=== PATIENT | female | born 1950 | race Caucasian/White ===

== ENCOUNTER → 2016-10-10 | Outpatient (CLI) | payer MEDICARE ==
[~2016-10-10] MED LIST: CYAN100021 PO; FOLI0.4T2 PO; LEFLUNOMIDE; METH2.5T PO; PRED5TAB PO; RANI150C11 PO
--- NOTE | 2016-10-10 16:40 | Diagnostic Imaging Report ---
EXAMINATION: DEXA scan. INDICATION: Osteopenia. TECHNIQUE: Bone mineral density estimated based on dual energy radiography over the lumbar spine and femoral necks was performed. FINDINGS: The lumbar spine T-score is -2.6. This is a 3.8% increased density measurement compared to 10/27/2014. The T score over the left femoral neck is -1.8 and on the right is -2.1. This is a 0.7% increased density measurement compared to 10/27/2014. IMPRESSION: Osteoporosis. Dictated by: Dictated on workstation # [id number]
--- NOTE | 2016-10-10 19:20 | Diagnostic Imaging Report ---
Bilateral screening mammogram. The current study was also evaluated with a Computer Aided Detection (CAD) system. INDICATION: Screening. No current complaints stated on the questionnaire. COMPARISON: 10/27/2014. FINDINGS: The breasts are composed of heterogeneously dense parenchyma which may decrease mammographic sensitivity. Scattered benign-appearing calcifications are seen. Allowing for technique and positional differences, no suspicious change is seen. IMPRESSION: Dense breasts with no definite change. ACR BI-RADS Category 2: Benign findings. Result letter will be mailed to the patient. Note: At least 10% of breast cancer is not imaged by mammography. Dictated by: Dictated on workstation # [id number]
== END ==
LOC: RAD 10:10
PROVIDERS: ATTEND Family Medicine
DX: M81.0 Age-related osteoporosis without current pathological fracture (principal); Z12.31 Encounter for screening mammogram for malignant neoplasm of breast; Z85.3 Personal history of malignant neoplasm of breast
CPT/HCPCS: 77067; 77080

== ENCOUNTER → 2016-12-17 | Outpatient (CLI) | payer MEDICARE, OTHER ==
[2016-12-17 10:32] LABS: CREATININE SERUM 1.09 MG/DL (0.60-1.30)
--- NOTE | 2016-12-17 11:21 | Diagnostic Imaging Report ---
PROCEDURE: CT head with and without contrast. TECHNIQUE: Multiple contiguous axial images were obtained through the brain before and after the administration of intravenous contrast. INDICATION: Vertigo. 80 mL of Omnipaque 350 administered intravenously. FINDINGS: There is no intracranial hemorrhage, edema, or mass effect seen on the unenhanced phase. After contrast administration, no enhancing lesion is identified in the brain or extra-axial space. There is no hydrocephalus. The calvarium and orbits appear grossly unremarkable. There is mild opacification in the left mastoid sinus. IMPRESSION: 1. There is no intracranial hemorrhage or enhancing mass. 2. Partially opacified left mastoid air cells. Correlate for possible associated mastoiditis. Report was faxed to office of BRENT Ocampo, @ 11:14 AM/jason. Dictated by: Dictated on workstation # [id number]
--- NOTE | 2016-12-17 13:03 | Diagnostic Imaging Report ---
PROCEDURE: US Carotid Duplex Bilateral. TECHNIQUE: Multiple real-time grayscale images were obtained over the carotid arteries in various projections bilaterally. Additional duplex Doppler and color Doppler images were also obtained. INDICATION: TIA, vertigo and blurry vision. FINDINGS: There are no focally elevated velocities in either internal carotid artery. The ICA/CCA ratios are within normal limits, bilaterally. There is antegrade flow in the vertebral arteries, bilaterally. Grayscale images demonstrate minimal carotid plaque, bilaterally. IMPRESSION: Minimal bilateral carotid plaque however spectral analysis shows no evidence of a hemodynamically significant stenosis in either internal carotid artery. Dictated by: Dictated on workstation # [id number]
== END ==
LOC: RAD 09:42
PROVIDERS: ATTEND Nurse Practitioner Family
DX: R42 Dizziness and giddiness (principal); H53.8 Other visual disturbances; G45.9 Transient cerebral ischemic attack, unspecified
CPT/HCPCS: 36415; 70470; 82565; 84520; 93880

== ENCOUNTER → 2017-03-28 | Outpatient (CLI) | payer MEDICARE ==
[2017-03-28 09:18] LABS: BASOPHILS # (AUTO) 0.1 10^3/uL (0.0-0.1); BASOPHILS % (AUTO) 1 % (0-10); EOSINOPHILS # (AUTO) 0.1 10^3/uL (0.0-0.3); EOSINOPHILS % (AUTO) 1 % (0-10); LYMPHOCYTES # (AUTO) 4.2 X 10^3 (1.0-4.0); LYMPHOCYTES % (AUTO) 39 % (12-44); MEAN CORPUSCULAR HEMOGLOBIN 31 PG (25-34); MEAN CORPUSCULAR HGB CONC 33 G/DL (32-36); MEAN CORPUSCULAR VOLUME 94 FL (80-99); MEAN PLATELET VOLUME 9.8 FL (7.4-10.4); MONOCYTES # (AUTO) 0.7 X 10^3 (0.0-1.0); MONOCYTES % (AUTO) 6 % (0-12); NEUTROPHILS # (AUTO) 5.7 X 10^3 (1.8-7.8); NEUTROPHILS % (AUTO) 53 % (42-75); PLATELET COUNT 232 10^3/uL (130-400); RED BLOOD COUNT 4.51 10^6/uL (4.35-5.85); RED CELL DISTRIBUTION WIDTH 14.9 % (10.0-14.5); WHITE BLOOD COUNT 10.7 10^3/uL (4.3-11.0)
[2017-03-28 09:39] LABS: ALBUMIN 3.6 GM/DL (3.2-4.5); BILIRUBIN,TOTAL 0.6 MG/DL (0.1-1.0); CALCIUM 8.2 MG/DL (8.5-10.1); CREATININE SERUM 1.04 MG/DL (0.60-1.30); POTASSIUM 3.6 MMOL/L (3.6-5.0); TOTAL PROTEIN 6.3 GM/DL (6.4-8.2)
== END ==
LOC: LAB 09:05
PROVIDERS: ATTEND Family Medicine
DX: M06.9 Rheumatoid arthritis, unspecified (principal); E78.5 Hyperlipidemia, unspecified; Z79.899 Other long term (current) drug therapy
CPT/HCPCS: 36415; 80053; 80061; 85025

== ENCOUNTER → 2017-05-23 | Outpatient (CLI) | payer MEDICARE ==
[2017-05-23 09:14] LABS: BASOPHILS % (AUTO) 0 % (0-10); EOSINOPHILS # (AUTO) 0.1 10^3/uL (0.0-0.3); EOSINOPHILS % (AUTO) 1 % (0-10); LYMPHOCYTES % (AUTO) 20 % (12-44); MEAN CORPUSCULAR HEMOGLOBIN 31 PG (25-34); MEAN CORPUSCULAR HGB CONC 33 G/DL (32-36); MEAN CORPUSCULAR VOLUME 95 FL (80-99); MEAN PLATELET VOLUME 9.8 FL (7.4-10.4); MONOCYTES # (AUTO) 0.7 X 10^3 (0.0-1.0); MONOCYTES % (AUTO) 7 % (0-12); NEUTROPHILS # (AUTO) 7.3 X 10^3 (1.8-7.8); NEUTROPHILS % (AUTO) 72 % (42-75); PLATELET COUNT 213 10^3/uL (130-400); RED BLOOD COUNT 4.35 10^6/uL (4.35-5.85); RED CELL DISTRIBUTION WIDTH 15.2 % (10.0-14.5); WHITE BLOOD COUNT 10.1 10^3/uL (4.3-11.0)
[2017-05-23 09:38] LABS: ALANINE AMINOTRANSFERASE 19 U/L (0-55); ALBUMIN 3.5 GM/DL (3.2-4.5); ANION GAP 10 MMOL/L (5-14); ASPARTATE AMINO TRANSFERASE 15 U/L (5-34); BILIRUBIN,TOTAL 0.5 MG/DL (0.1-1.0); BLOOD UREA NITROGEN 18 MG/DL (7-18); BUN/CREATININE RATIO 22; CARBON DIOXIDE 19 MMOL/L (21-32); CHLORIDE 113 MMOL/L (98-107); CHOLESTEROL 234 MG/DL (< 200); CREATININE SERUM 0.83 MG/DL (0.60-1.30); DIRECT LDL 159 MG/DL (1-129); GFR ESTIMATED > 60; GLUCOSE 122 MG/DL (70-105); POTASSIUM 4.1 MMOL/L (3.6-5.0); SODIUM 142 MMOL/L (135-145); TOTAL PROTEIN 6.3 GM/DL (6.4-8.2); TRIGLYCERIDES 95 MG/DL (<150); VLDL CHOLESTEROL 19 MG/DL (5-40)
== END ==
LOC: LAB 08:55
PROVIDERS: ATTEND Family Medicine
DX: Z51.81 Encounter for therapeutic drug level monitoring (principal); E78.5 Hyperlipidemia, unspecified; Z79.899 Other long term (current) drug therapy
CPT/HCPCS: 36415; 80053; 80061; 85025

== ENCOUNTER → 2017-10-15 | Outpatient (CLI) | payer MEDICARE, OTHER ==
--- NOTE | 2017-10-15 13:40 | Diagnostic Imaging Report ---
Indication: Routine screening. Comparison is made with prior study 10/10/2016 and 10/27/2014. 2-D and 3-D bilateral screening mammography was performed with CAD. The current study was also evaluated with a Computer Aided Detection (CAD) system. Both breasts remain heterogeneously dense, limiting the sensitivity of mammography. There is a circumscribed density in the upper right breast posterior depth. This appears more prominent than prior exams. The left breast is unremarkable. No malignant appearing microcalcifications are seen. The axilla are unremarkable. Impression: BI-RADS zero Right breast density. Additional views and ultrasound are recommended for further evaluation. ACR BI-RADS Category 0: Incomplete. (Needs additional imaging evaluation). Result letter will be mailed to the patient. Note: At least 10% of breast cancer is not imaged by mammography. Dictated by: Dictated on workstation # [id number]
== END ==
LOC: RAD 07:59
PROVIDERS: ATTEND Family Medicine
DX: Z12.31 Encounter for screening mammogram for malignant neoplasm of breast (principal)
CPT/HCPCS: 77067

== ENCOUNTER → 2017-10-23 | Outpatient (CLI) | payer MEDICARE, OTHER ==
--- NOTE | 2017-10-23 12:17 | Diagnostic Imaging Report ---
INDICATION: Right breast density. Patient presents for additional views. COMPARISON: Correlation is made with the recent screening study from 10/15/2017. TECHNIQUE: 2D and 3D unilateral right diagnostic mammography was performed including 3D ML and 3D spot compression ML views of the right breast. The current study was also evaluated with a Computer Aided Detection (CAD) system. FINDINGS: There is a persistent circumscribed density in the superior right breast approximately 6 to 7 cm from the nipple. This appears to be slightly medially located. No suspicious calcifications are seen. IMPRESSION: Circumscribed density in the upper and slightly inner right breast 6 cm from the nipple. Further evaluation with ultrasound is recommended. ACR BI-RADS Category 0: Incomplete. (Needs additional imaging evaluation). Result letter will be mailed to the patient. Note: At least 10% of breast cancer is not imaged by mammography. Dictated by: Dictated on workstation # [id number]
--- NOTE | 2017-10-23 12:22 | Diagnostic Imaging Report ---
INDICATION: Abnormal mammogram demonstrating a right breast density. COMPARISON: Correlation is made with the diagnostic mammogram from earlier this same day. TECHNIQUE: Sonographic interrogation of the upper and slightly inner right breast was performed. FINDINGS: There is a slightly lobulated hypoechoic mass at the 1 o'clock location of the right breast 3 cm from the nipple measuring 11 mm x 8 mm x 11 mm. This does demonstrate posterior acoustic enhancement. No internal vascularity is seen. No shadowing is identified. Evaluating this Realtime, the lesion does appear to be cystic. No other masses are seen. IMPRESSION: Probable lobulated cyst at the 1 o'clock location of the right breast correlating to the density noted on the recent mammogram. A followup right mammogram and right breast ultrasound in 6 months would be recommended to show continued stability. ACR BI-RADS Category 3: Probably benign findings. Dictated by: Dictated on workstation # [id number]
== END ==
LOC: RAD 09:08
PROVIDERS: ATTEND Family Medicine
DX: N60.02 Solitary cyst of left breast (principal); R92.8 Other abnormal and inconclusive findings on diagnostic imaging of breast

== ENCOUNTER → 2018-04-29 | Outpatient (CLI) | payer MEDICARE, OTHER ==
--- NOTE | 2018-04-29 14:06 | Diagnostic Imaging Report ---
Indication: Six-month followup right breast nodule. Correlation is made with prior mammogram from 10/15/2017 and 10/10/2016. Unilateral right 2-D and 3-D diagnostic mammography was performed. The right breast remains heterogeneously dense. Circumscribed nodule in the upper and slightly inner right breast at mid-to posterior depth appears stable. No new mass is seen. No suspicious calcifications are seen. Impression: BI-RADS zero Stable circumscribed nodule in the upper slightly inner right breast. Followup with ultrasound will also be performed today. ACR BI-RADS Category 0: Incomplete. (Needs additional imaging evaluation). Result letter will be mailed to the patient. Note: At least 10% of breast cancer is not imaged by mammography. Dictated by: Dictated on workstation # [id number]
--- NOTE | 2018-04-29 14:34 | Diagnostic Imaging Report ---
Indication: Six-month followup right breast cyst. Correlation is made with prior right breast ultrasound from 10/23/2017. Sonographic interrogation of the 1 o'clock location of the right breast 3 cm from the nipple was performed. The previously noted slightly lobulated anechoic mass is again seen measuring 9 mm x 7 mm x 7 mm compared with approximately 11 mm x 8 mm x 11 mm on prior. Again, no internal vascularity is seen. No acoustic shadowing is present Impression: BI-RADS 3. Slight decrease in size of the lobulated cystic mass at the 1 o'clock location of the right breast since exam 6 month earlier. Additional followup mammogram and right breast ultrasound is recommended in 6 months to show continued stability. Dictated by: Dictated on workstation # [id number]
== END ==
LOC: RAD 12:28
PROVIDERS: ATTEND Family Medicine
DX: N60.01 Solitary cyst of right breast (principal); N63.12 Unspecified lump in the right breast, upper inner quadrant

== ENCOUNTER → 2018-04-30 | Outpatient (CLI) | payer MEDICARE ==
[2018-04-30 11:08] LABS: BASOPHILS % (AUTO) 1 % (0-10); EOSINOPHILS # (AUTO) 0.2 10^3/uL (0.0-0.3); EOSINOPHILS % (AUTO) 2 % (0-10); HEMATOCRIT 43 % (35-52); HEMOGLOBIN 13.9 G/DL (11.5-16.0); LYMPHOCYTES # (AUTO) 2.2 X 10^3 (1.0-4.0); LYMPHOCYTES % (AUTO) 25 % (12-44); MEAN CORPUSCULAR HEMOGLOBIN 30 PG (25-34); MEAN CORPUSCULAR HGB CONC 32 G/DL (32-36); MEAN CORPUSCULAR VOLUME 93 FL (80-99); MEAN PLATELET VOLUME 10.1 FL (7.4-10.4); MONOCYTES # (AUTO) 0.7 X 10^3 (0.0-1.0); MONOCYTES % (AUTO) 9 % (0-12); NEUTROPHILS # (AUTO) 5.6 X 10^3 (1.8-7.8); NEUTROPHILS % (AUTO) 64 % (42-75); PLATELET COUNT 233 10^3/uL (130-400); RED BLOOD COUNT 4.64 10^6/uL (4.35-5.85); RED CELL DISTRIBUTION WIDTH 14.8 % (10.0-14.5); WHITE BLOOD COUNT 8.8 10^3/uL (4.3-11.0)
[2018-04-30 11:35] LABS: ALANINE AMINOTRANSFERASE 20 U/L (0-55); ALBUMIN 3.7 GM/DL (3.2-4.5); ALKALINE PHOSPHATASE 51 U/L (40-136); BILIRUBIN,TOTAL 0.6 MG/DL (0.1-1.0); BUN/CREATININE RATIO 20; CALCIUM 8.8 MG/DL (8.5-10.1); CARBON DIOXIDE 20 MMOL/L (21-32); CHLORIDE 112 MMOL/L (98-107); CHOLESTEROL 211 MG/DL (< 200); CREATININE SERUM 0.91 MG/DL (0.60-1.30); GFR ESTIMATED > 60; GLUCOSE 98 MG/DL (70-105); HDL CHOLESTEROL 57 MG/DL (40-60); POTASSIUM 4.1 MMOL/L (3.6-5.0); SODIUM 143 MMOL/L (135-145); TOTAL PROTEIN 6.5 GM/DL (6.4-8.2); TRIGLYCERIDES 121 MG/DL (<150); VLDL CHOLESTEROL 24 MG/DL (5-40)
== END ==
LOC: RAD 10:43
PROVIDERS: ATTEND Family Medicine
DX: Z51.81 Encounter for therapeutic drug level monitoring (principal)
CPT/HCPCS: 36415; 80053; 80061; 85025

== ENCOUNTER → 2018-06-24 | Outpatient (CLI) | payer MEDICARE, OTHER ==
--- NOTE | 2018-06-24 12:36 | Diagnostic Imaging Report ---
PROCEDURE: US left lower extremity venous. TECHNIQUE: Multiple real-time grayscale images were obtained over the left lower extremity in various projections. Additional duplex Doppler and color Doppler images were also obtained. Date: June 24, 2018. Indication: 68-year-old female, left leg swelling and calf pain. Evaluation for deep venous thrombosis. Comparison: January 16, 2016. Findings: The left common femoral vein, left superficial femoral vein, and left popliteal vein are all compressible with normal flow and response to augmentation. The visualized portions of the left deep femoral vein are patent. The left posterior tibial vein and peroneal vein but appear patent. IMPRESSION: 1. Negative for left lower extremity deep venous thrombosis. Dictated by: Dictated on workstation # [id number]
== END ==
LOC: RAD 11:57
PROVIDERS: ATTEND Family Medicine
DX: M79.89 Other specified soft tissue disorders (principal)

== ENCOUNTER → 2018-10-08 | Outpatient (CLI) | payer MEDICARE, OTHER ==
--- NOTE | 2018-10-08 21:09 | Diagnostic Imaging Report ---
INDICATION: Six-month followup right breast nodule. Correlation is made with prior mammogram from 04/29/2018, 10/23/2017. 2-D and 3-D bilateral diagnostic mammography was performed with a Computer Aided Detection (CAD) system. FINDINGS: Both breasts remain heterogeneously dense, limiting sensitivity of mammography. Circumscribed nodule upper and slightly inner right breast at mid-to posterior depth appears stable. No new mass is seen. No suspicious calcifications are identified. Axillae are unremarkable. IMPRESSION: Stable bilateral mammograms. Ultrasound of the upper-inner right breast is recommended to further evaluate previously noted cystic nodule at the 1 o'clock location. This will be performed today. ACR BI-RADS Category 0: Incomplete. (Needs additional imaging evaluation). Result letter will be mailed to the patient. Note: At least 10% of breast cancer is not imaged by mammography. Dictated by: Dictated on workstation # [id number]
--- NOTE | 2018-10-08 21:26 | Diagnostic Imaging Report ---
INDICATION: Six-month followup right breast cyst. Correlation is made with prior mammogram from 04/29/2018. FINDINGS: Hypoechoic mass 1 o'clock location 3 cm from the nipple is again noted measuring 9 mm x 6 mm x 7 mm compared with 10 mm x 7 mm x 7 mm on prior. No internal vascularity is seen. No other masses are detected IMPRESSION: Stable cystic nodule right breast 1 o'clock location 3 cm from the nipple when compared with exam from 6 months earlier. Additional six-month followup is recommended to confirm stability. ACR BI-RADS Category 3: Probably benign findings. Dictated by: Dictated on workstation # [id number]
== END ==
LOC: RAD 13:43
PROVIDERS: ATTEND Family Medicine
DX: N60.01 Solitary cyst of right breast (principal)
CPT/HCPCS: 77066

== ENCOUNTER → 2018-10-27 | Outpatient (CLI) | payer MEDICARE, OTHER ==
--- NOTE | 2018-10-27 10:41 | Diagnostic Imaging Report ---
INDICATION: Osteoporosis, postmenopausal state. COMPARISON: October 10, 2016 FINDINGS: AP Spine L1-L4: [BMD (g/cm2): 0.907] [T-Score: -2.4] [Z-Score: -1.3] [BMD Previous: 0.892] [BMD % Change: 1.7] LT Hip Neck: [BMD (g/cm2): 0.725] [T-Score: -2.3] [Z-Score: -1.0] LT Hip Total: [BMD (g/cm2):0.792] [T-Score:-1.7] [Z-Score: -0.7] [BMD Previous: 0.787] [BMD % Change: 0.6] RT Hip Neck: [BMD (g/cm2):0.742] [T-Score:-2.1] [Z-Score:-0.8] RT Hip Total: [BMD (g/cm2):0.799] [T-score:-1.7] [Z-Score:-0.6] [BMD Previous:0.743] [BMD % Change:7.5] *Indicates significant change from prior examination based on 95% confidence level. World Health Organization criteria for BMD interpretation classify patients as Normal (T-score at or above -1.0), Osteopenic (T-score between -1.0 and -2.5) or Osteoporotic (T-score at or below -2.5). LIMITATIONS AND MODIFICATION: None. FRACTURE RISK (FRAX SCORE): The ten year probability of (%): Major Osteoporotic Fracture: [15.8] Hip Fracture: [3.5] IMPRESSION: 1. Osteopenia (Low bone mass). 2. No significant change in bone mineral density since prior examination. 3. See below National Osteoporosis Foundation guidelines on when to potentially initiate pharmacologic therapy. Based on the National Osteoporosis Foundation Guidelines, pharmacologic treatment should be initiated in any of the following, unless clinical conditions suggest otherwise: * Any patient with prior fragility fracture of the hip or vertebrae. A spine fracture indicates 5X risk for subsequent spine fracture and 2X risk for subsequent hip fracture. * Osteoporosis (T-score <-2.5). * Postmenopausal women and men age 50 and older with low bone mass/osteopenia (T-score between -1.0 and -2.5) by DXA and 10-year major osteoporotic fracture greater than 20% or a 10-year probability of hip fracture greater than 3%. These fracture risks are supplied above in the FRAX score, if applicable. * Clinician judgement and/or patient preferences may indicate treatment for people with 10-year fracture probabilities above or below these levels. Dictated by: Dictated on workstation # [id number]
== END ==
LOC: RAD 09:43
PROVIDERS: ATTEND Family Medicine
DX: M81.0 Age-related osteoporosis without current pathological fracture (principal); M85.89 Other specified disorders of bone density and structure, multiple sites; Z78.0 Asymptomatic menopausal state; R92.8 Other abnormal and inconclusive findings on diagnostic imaging of breast
CPT/HCPCS: 77080

== ENCOUNTER → 2019-04-09 | Outpatient (CLI) | payer MEDICARE, OTHER ==
--- NOTE | 2019-04-09 18:08 | Diagnostic Imaging Report ---
EXAMINATION: Ultrasound right breast limited. INDICATION: Cystic mass. FINDINGS: The previous right breast ultrasound exam of 10/23/2017 noted a lobulated cyst in the 11 o'clock position of the right breast. That finding measured minimally smaller on the follow-up ultrasound exam of 04/29/2018. On this study, the lobulated avascular hypoechoic lesion seen previously is again evident and does not appear to have changed significantly. Although the margins of this lesion are somewhat irregular, the stable appearance of this finding over an 18-month period would suggest it is most likely a benign process. I would recommend that this area be reevaluated by ultrasound in six months to establish a two-year stability. IMPRESSION: The hypoechoic lesion in the right breast seen previously appears stable. Most likely, this is a benign process. Recommendations as above. ACR BI-RADS Category 3: Probably benign findings. Result letter will be mailed to the patient. Note: At least 10% of breast cancer is not imaged by mammography. Dictated by: Dictated on workstation # [id number]
== END ==
LOC: RAD 08:44
PROVIDERS: ATTEND Family Medicine
DX: N64.89 Other specified disorders of breast (principal); N63.10 Unspecified lump in the right breast, unspecified quadrant

== ENCOUNTER 2020-09-21 05:36 | Outpatient (CLI) | payer MEDICARE, OTHER ==
[~2020-09-21] VITALS: Ht 154.9 cm; Wt 76.8 kg
[2020-09-21] MEDS ORDERED: FOLI0.4T6 PO (10:40)
[2020-09-21] MEDS ORDERED: METH2.5T PO (10:40)
[2020-09-21] MEDS ORDERED: PRAV80TA2 PO (10:40)
== END 2020-09-21 10:44 | disposition home or self-care (01) ==
LOC: PREOP 05:36
PROVIDERS: ATTEND Surgery
DX: Z01.818 Encounter for other preprocedural examination (principal)

== ENCOUNTER 2020-09-27 06:04 | Day surgery (SDC) | payer MEDICARE, OTHER ==
[~2020-09-27] VITALS: Ht 154 cm; Wt 76.8 kg
[~2020-09-27 06:04] MED LIST changes: +FOLI0.4T6 PO; +PRAV80TA2 PO
[2020-09-27] MEDS ORDERED: LACTATED RINGERS 1,000 ML IV PRN (06:45)
[2020-09-27] MEDS ORDERED: ceFAZolin 2 GM IV Premixed 50 ML IV ONE (06:45)
[2020-09-27 06:48] VITALS: BP 142/92
[2020-09-27] MEDS ORDERED: LIDOCAINE 1% INJ 20 ML 20 ML VIAL INJ ONE (08:30)
[2020-09-27] MEDS ORDERED: LIDOCAINE 1% INJ 20 ML 20 ML VIAL ONE (08:46)
--- NOTE | 2020-09-27 11:03 | Diagnostic Imaging Report ---
INDICATION: Right breast mass. Patient presents for ultrasound-guided biopsy. DETAILS OF THE PROCEDURE: The patient was brought to the sonographic suite and placed on the table in the supine position. Ultrasound imaging of the right breast was performed to evaluate for an appropriate entry site. The lobulated cystic lesion at the 11 o'clock location of the right breast 3 cm from the nipple was biopsied using a 13-gauge hand-held vacuum-assisted mammotome device. After the initial pass, the lesion completely collapsed, likely owing to a fluid-containing lesion. Additional core biopsies at the site of the lesion were also performed. A marker clip was then deployed. Hemostasis was obtained using manual compression. The patient tolerated the procedure well and was sent for a post procedure mammogram in satisfactory condition. IMPRESSION: Successful ultrasound guided biopsy of the lobulated cystic lesion at the 11 o'clock location of the right breast 3 cm from the nipple. Pathology results are currently pending. If this lesion is benign, the patient will proceed with hookwire localization of the known neoplastic nodule at the 6 o'clock location of the right breast. If the 11 o'clock lesion is malignant, additional surgical planning by Dr. Angel will be performed. Dictated by: Dictated on workstation # [id number]
[2020-09-27 11:45] VITALS: BP 138/86
--- NOTE | 2020-09-27 13:20 | Diagnostic Imaging Report ---
INDICATION: Right breast biopsy. 2-D CC and ML mammography was performed. There is a marker clip identified in the upper right breast, status post right breast biopsy. There is a marker clip noted in the lower outer right breast as well from prior biopsy. IMPRESSION: Satisfactory location of the marker clip in the superior right breast, status post ultrasound-guided biopsy. Dictated by: Dictated on workstation # [id number]
== END 2020-09-27 11:45 ==
LOC: SDC 06:04 → EDSTATUS 11:45
PROVIDERS: ATTEND Surgery
DX: C50.311 Malignant neoplasm of lower-inner quadrant of right female breast (principal); N60.31 Fibrosclerosis of right breast; M19.90 Unspecified osteoarthritis, unspecified site; E66.9 Obesity, unspecified; Z68.32 Body mass index [BMI] 32.0-32.9, adult; Z79.899 Other long term (current) drug therapy; Z88.2 Allergy status to sulfonamides
CPT/HCPCS: 19083; 77065; 87081; 88305; A4648; G0279

== ENCOUNTER 2020-10-12 05:35 | Outpatient (CLI) | payer MEDICARE ==
[~2020-10-12] VITALS: Ht 154.9 cm; Wt 78.0 kg
[2020-10-12] MEDS ORDERED: MULT-1136 PO (12:33)
== END 2020-10-12 12:49 | disposition home or self-care (01) ==
LOC: PREOP 05:35
PROVIDERS: ATTEND Surgery
DX: Z01.818 Encounter for other preprocedural examination (principal); C50.911 Malignant neoplasm of unspecified site of right female breast

== ENCOUNTER 2020-10-18 06:07 | Day surgery (SDC) | payer MEDICARE, OTHER ==
[2020-10-18] VITALS (11 sets, daily range): BP systolic 110–154; BP diastolic 65–98
[~2020-10-18] VITALS: Ht 154 cm; Wt 78.0 kg
[~2020-10-18 06:07] MED LIST changes: +MULT-1136 PO
[2020-10-18] MEDS ORDERED: LACTATED RINGERS 1,000 ML IV PRN (06:15)
[2020-10-18] MEDS ORDERED: ceFAZolin 2 GM IV Premixed 50 ML IV ONE (06:15)
[2020-10-18] MEDS ORDERED: ceFAZolin 2 GM IV Premixed 50 ML ONE (06:36)
--- NOTE | 2020-10-18 08:17 | Progress Note-Pre Operative ---
Pre-Operative Progress Note H&P Reviewed The H&P was reviewed, patient examined and no changes noted. Time Seen by Provider: 08:12 Date H&P Reviewed: October 18, 2020 Time H&P Reviewed: 08:13 Pre-Operative Diagnosis: Right breast Cancer PORSCHE GARCIA DO October 18, 2020 08:17
[2020-10-18] MEDS ORDERED: LIDOCAINE 1% INJ 20 ML 20 ML VIAL INJ ONE (08:30)
[2020-10-18] MEDS ORDERED: METHYLENE BLUE 0.5% (PROVAYBLUE) 50 mg/10 ml vial IV ONE (08:41)
[2020-10-18] MEDS ORDERED: LIDOCAINE/EPI 1%-1:100,000 (XYLOCAINE) 20ML ONE (08:41)
--- NOTE | 2020-10-18 09:32 | Diagnostic Imaging Report ---
INDICATION: Breast cancer Lymphoscintigram 1.1 mCi of technetium 99m filtered sulfur colloid was injected into the 4 quadrant periareolar regions of the right breast. There are 2 right axillary lymph nodes seen one with greater uptake is more anterior. IMPRESSION: Axillary sentinel node localization. Dictated by: Dictated on workstation # [id number]
[2020-10-18] MEDS ORDERED: fentaNYL INJ 100 MCG/2 ML AMP ONE ×2 (10:31→11:34)
[2020-10-18] MEDS ORDERED: MIDAZOLAM 2 MG/2 ML (VERSED) VIAL ONE (10:31)
[2020-10-18] MEDS ORDERED: LIDOCAINE PF 2% 5 ML (XYLOCAINE) VIAL ONE (10:31)
[2020-10-18] MEDS ORDERED: proPOfol 200 MG/20 ML (DIPRIVAN) VIAL IV ONE (10:31)
[2020-10-18] MEDS ORDERED: ONDANSETRON 4 MG/2 ML (SDV) Z0FRAN ONE (10:31)
[2020-10-18] MEDS ORDERED: SEVOFLURANE (ULTANE) 15 ML INHAL SOLN ONE ×2 (10:31→11:49)
--- NOTE | 2020-10-18 11:00 | Diagnostic Imaging Report ---
INDICATION: Right breast nodule. Patient presents for hook wire placement prior to lumpectomy. DETAILS OF THE PROCEDURE: The patient was brought to the sonographic suite and placed on the table in the supine position. Ultrasound imaging of the right breast was performed to evaluate for an appropriate entry site. The right breast was then prepped and draped in the usual sterile fashion. A small amount of 1% lidocaine was utilized for local anesthesia. A localizer needle was advanced through the hypoechoic nodule at the 6 o'clock location of the right breast. A hookwire was deployed and the needle was removed. The hookwire was affixed to the patient's skin. The patient tolerated the procedure well and was sent for a post procedure mammogram in satisfactory condition. IMPRESSION: Successful sonographically assisted hookwire placement through the lesion at the 6 o'clock location of the right breast. Dictated by: Dictated on workstation # [id number]
--- NOTE | 2020-10-18 11:52 | Progress Note-Post Operative ---
Post-Operative Progess Note Surgeon (s)/Financial Sales Professional (s) Surgeon PORSCHE GARCIA DO Financial Sales Professional: Blanca Pre-Operative Diagnosis Right breast Cancer Post-Operative Diagnosis same pending path Procedure & Operative Findings Date of Procedure 10/18/20 Procedure Performed/Findings 1. Right partial Mastectomy with needle localization 2. [place] lymph node bx 3. injection of methylene blue Anesthesia Type LMA Estimated Blood Loss Estimated blood loss (mL): appx 20ml Specimens/Packing Specimens Removed right partial mastectomy sentinel lymph node PORSCHE GARCIA DO October 18, 2020 11:52
[2020-10-18] MEDS ORDERED: ACHD5005 PO (11:53)
--- NOTE | 2020-10-18 11:54 | Discharge Inst-Surgical ---
Discharge Inst-Surgical Depart Medication/Instructions New, Converted or Re-Newed RX: RX Given to Pt/Family Patient Instructions Follow up Appt: Make appointment for 1 week. [phone] Instructions: No lifting greater than 20 pounds. No strenuous activity. May shower in 24 hours, no tub bath or soaking. Use incentive spirometer at home as directed. No Smoking Skin/Wound Care: May remove bandages in am. You need to leave the Dermabond on incision it will fall off on it's own. Symptoms to Report: Appetite Changes, Extremity Discoloration, Numbness/Tingling, Swelling Increased, Bleeding Excessive, Eyesight Changes, Pain Increased, Urine Color Change, Constipation(Persistent), Fever over 101 degree F, Pain/Pressure in chest, Urinating Difficulty, Cough Up/Vomit Blood, Heart Beat Irreg/Pounding, Pain/Pressure in jaw, Cramps in feet or legs, Lightheadedness, Pain/Pressure in shoulder, Diarrhea(Persistent), Memory Changes Suddenly, Questions/Concerns, Weight gain consecutive days, Dizziness/Fainting, Nausea/Vomiting, Shortness of Breath, Weight gain over 2 pounds If questions or concerns contact your physician Or seek help at emergency department. Activity Activity as Tolerated: Yes Activity Instructions: Avoid Stress to Incision Driving Instructions: No Driving/Refer to Dr. Leonard Discharge Diet: No Restrictions Diet After 24 Hours: Clear Liquid if Nauseous If Any Problems/Questions/Issu: Contact Your Physician, Go to Emergency Room Skin/Wound Care Infection Signs and Symptoms: Increased Redness, Foul Odor of Wound, Increased Drainage, Skin Itchy or Has a Rash, Increased Swelling, Temperature Above 101 F Bathing Instructions: Shower Stitches/Gerard/Dermabond Dis: Dermabond Ice Pack: Ice On and Off Site PORSCHE GARCIA DO October 18, 2020 11:54
--- NOTE | 2020-10-18 12:07 | Anesthesia-General Post-Op ---
General Patient Condition Mental Status/LOC: Same as Preop Cardiovascular: Satisfactory Nausea/Vomiting: Absent Respiratory: Satisfactory Pain: Controlled Complications: Absent Post Op Complications Complications None Follow Up Care/Instructions Patient Instructions None needed. Anesthesia/Patient Condition Patient Condition Patient is doing well, no complaints, stable vital signs, no apparent adverse anesthesia problems. No complications reported per nursing. ALISSA BROWN CRNA October 18, 2020 12:07
[2020-10-18] MEDS ORDERED: morphine INJ 10 MG/ML 1ML (SYR OR VIAL) IVP ONE (12:15)
[2020-10-18] MEDS ORDERED: ONDANSETRON 4 MG/2 ML (SDV) Z0FRAN IVP PRN (12:15)
[2020-10-18] MEDS ORDERED: PROMETHAZINE INJ 25 MG/ML (PHENERGAN) AMP IVP ONE (12:15)
[2020-10-18] MEDS ORDERED: MEPERIDINE (DEMEROL) INJ 50 MG/ML IVP ONE (12:15)
--- NOTE | 2020-10-18 12:55 | Diagnostic Imaging Report ---
INDICATION: Left breast carcinoma, status post lumpectomy. Specimen radiograph was obtained of the patient's right breast specimen, status post lumpectomy. Hookwire and localizer clip from previous biopsy are located within the specimen. IMPRESSION: Specimen radiograph, as described. Dictated by: Dictated on workstation # [id number]
--- NOTE | 2020-10-18 12:56 | Diagnostic Imaging Report ---
INDICATION: Right breast carcinoma. Patient status post hookwire placement using ultrasound guidance. Unilateral right 2-D CC and ML mammography was performed post hookwire placement. Hookwire appears to be adjacent to the clip in the inferior right breast 6:00 location. IMPRESSION: Hookwire localization 6 o'clock location right breast, as described. Dictated by: Dictated on workstation # [id number]
[2020-10-18] MEDS ORDERED: HYDROcodone/APAP 5 MG/325 MG (LORTAB) TAB ONE (12:57)
[2020-10-18] MEDS ORDERED: HYDROcodone/APAP 5 MG/325 MG (LORTAB) TAB PO ONE (13:15)
--- NOTE | 2020-10-19 02:07 | OPERATIVE REPORT ---
DATE OF SERVICE: 10/18/2020 PREOPERATIVE DIAGNOSIS: Right breast cancer. POSTOPERATIVE DIAGNOSIS: Right breast cancer, pending pathology. PROCEDURES: 1. Right partial mastectomy with needle localization. 2. [place] lymph node biopsy. 3. Injection of methylene blue. SURGEON: Piter Angel DO TABLE WORKER PACKAGER: Alexander Rios DO. ANESTHESIA: General endotracheal tube. SPECIMEN: 1. Right breast lateral localization. 2. [place] lymph nodes. BLOOD LOSS: Less than 20 mL. FLUIDS: Per anesthesia. POSTOPERATIVE CONDITION: Stable. INDICATION FOR PROCEDURE: The patient is a 70-year-old female, who has right breast cancer, needs a definitive treatment. FINDINGS: The patient had a right partial mastectomy with needle localization and she had sentinel lymph node biopsy on the skin was 545 in vivo 1055 and ex vivo 1559. They were blue. PROCEDURE NOTE: After informed consent was obtained, the patient was first sent to radiology to have a needle localization at site of previous biopsy that was positive for breast cancer as well she had an injection of radioactive dye. She was then brought down to the operating room, placed on the table in supine position. Methylene blue was injected 0.5 mL at the 12 o'clock, 3 o'clock, 6 o'clock, and 9 o'clock position subcutaneously and then massaged it in for 5 minutes and then she was sterilely prepped and draped in normal fashion. I started with the partial mastectomy, the needle was at about the 6 o'clock position, made an incision under the areola from the areola down almost to the inframammary fold with a #15 blade, carried down through the skin into subcutaneous tissue, then deepened down to subcutaneous tissue with Bovie electrocautery, going around the needle to remove this area and block there by doing a partial mastectomy able to get down around the needle and removed this, placed one short stitch superior and long stitch laterally and then 2 stitches at the base. This was passed off table and sent to pathology. Radiology called back and said the specimen was obtained with the needle. Area was copiously irrigated with sterile water. Hemostasis obtained and then elected to close the incision with 4-0 undyed Monocryl 4 interrupted subcuticular stitches. At this point, towel this off and used a separate and new set of instruments to do the sentinel lymph node biopsy, injected in the axilla just under the pectoralis major muscle. I then made an incision with #15 blade, carried down through the skin into subcutaneous tissue, then deepened down to subcutaneous tissue with Bovie electrocautery. Directing the dissection with the Neoprobe, we got a reading of 545 on the skin, dissected down and found blue lymph nodes. There was a whole bunch of them was 1055 in vivo grab this with a [place] and then dissecting around Bovie electrocautery and then removed these, copiously irrigated with sterile water, ex vivo, these were 15[address] and then elected to place a couple of gelfoams at the base of this incision, then closed this incision with 3-0 monocryl interrupted stitches. Area was cleaned and dried. Both incisions then had skin Affix was placed. The patient tolerated the procedure. Fluff dressing and pressure dressing was placed and she was transferred to recovery room in stable condition. Sponges and needle count correct at the end of the case. Dr. Rios assisted in this case helping to make incisions, close incisions, identify anatomy, hold anatomy out of the way. Job ID: [id number] DocumentID: [id number] Dictated Date: 10/18/2020 18:23:16 Inventory Control Clerk Date: 10/19/2020 02:06:30 Dictated By: DO OSMANI ABDI
== END 2020-10-18 14:15 ==
LOC: CARD 06:07
PROVIDERS: ATTEND Surgery
DX: C50.411 Malignant neoplasm of upper-outer quadrant of right female breast (principal); D17.79 Benign lipomatous neoplasm of other sites
CPT/HCPCS: 19285; 19301; 38525; 38900; 76098; 77065; 78195; 87081; A9541; G0279; 88307; 88341; 88342; 88360

== ENCOUNTER 2020-12-15 09:09 | Outpatient (RCR) | payer MEDICARE, OTHER ==
[~2020-12-15 09:09] MED LIST changes: +ACHD5005 PO
== END 2020-12-18 09:12 | disposition home or self-care (01) ==
LOC: ONC 09:09
PROVIDERS: ATTEND Internal Medicine Hematology & Oncology
DX: C50.419 Malignant neoplasm of upper-outer quadrant of unspecified female breast (principal); L03.90 Cellulitis, unspecified
CPT/HCPCS: 77290; 77295; 77300; 77334; 77336; 77417; 99204; 99213; 99214

== ENCOUNTER 2021-02-15 09:21 | Outpatient (RCR) | payer MEDICARE, OTHER ==
[2021-01-02 10:12] LABS: BASOPHILS % (AUTO) 1 % (0-10); EOSINOPHILS # (AUTO) 0.1 10^3/uL (0.0-0.3); EOSINOPHILS % (AUTO) 3 % (0-10); HEMATOCRIT 42 % (35-52); HEMOGLOBIN 13.7 g/dL (11.5-16.0); LYMPHOCYTES # (AUTO) 1.4 10^3/uL (1.0-4.0); LYMPHOCYTES % (AUTO) 43 % (12-44); MEAN CORPUSCULAR HEMOGLOBIN 31 pg (25-34); MEAN CORPUSCULAR HGB CONC 33 g/dL (32-36); MEAN CORPUSCULAR VOLUME 96 fL (80-99); MEAN PLATELET VOLUME 9.7 fL (9.0-12.2); MONOCYTES # (AUTO) 0.3 10^3/uL (0.0-1.0); MONOCYTES % (AUTO) 9 % (0-12); NEUTROPHILS # (AUTO) 1.5 10^3/uL (1.8-7.8); NEUTROPHILS % (AUTO) 45 % (42-75); PLATELET COUNT 169 10^3/uL (130-400); WHITE BLOOD COUNT 3.4 10^3/uL (4.3-11.0)
[2021-01-02 10:29] LABS: ALBUMIN 3.6 GM/DL (3.2-4.5); BILIRUBIN,TOTAL 0.6 MG/DL (0.1-1.0); CALCIUM 8.5 MG/DL (8.5-10.1); CREATININE SERUM 1.17 MG/DL (0.60-1.30); POTASSIUM 3.9 MMOL/L (3.6-5.0); TOTAL PROTEIN 6.4 GM/DL (6.4-8.2)
[2021-02-06 10:41] LABS: BASOPHILS % (AUTO) 1 % (0-10); EOSINOPHILS # (AUTO) 0.1 10^3/uL (0.0-0.3); EOSINOPHILS % (AUTO) 2 % (0-10); HEMATOCRIT 39 % (35-52); HEMOGLOBIN 12.7 g/dL (11.5-16.0); LYMPHOCYTES % (AUTO) 26 % (12-44); MEAN CORPUSCULAR HEMOGLOBIN 32 pg (25-34); MEAN CORPUSCULAR HGB CONC 33 g/dL (32-36); MEAN CORPUSCULAR VOLUME 96 fL (80-99); MEAN PLATELET VOLUME 9.9 fL (9.0-12.2); MONOCYTES # (AUTO) 0.4 10^3/uL (0.0-1.0); MONOCYTES % (AUTO) 10 % (0-12); NEUTROPHILS # (AUTO) 2.4 10^3/uL (1.8-7.8); NEUTROPHILS % (AUTO) 61 % (42-75); PLATELET COUNT 151 10^3/uL (130-400); WHITE BLOOD COUNT 3.9 10^3/uL (4.3-11.0)
[2021-02-06 11:08] LABS: ALBUMIN 3.4 GM/DL (3.2-4.5); BILIRUBIN,TOTAL 0.4 MG/DL (0.1-1.0); CALCIUM 8.5 MG/DL (8.5-10.1); CREATININE SERUM 1.08 MG/DL (0.60-1.30); POTASSIUM 3.8 MMOL/L (3.6-5.0)
== END 2021-03-18 | disposition home or self-care (01) ==
LOC: ONC 09:21
PROVIDERS: ATTEND Internal Medicine Hematology & Oncology
DX: Z51.0 Encounter for antineoplastic radiation therapy (principal); C50.811 Malignant neoplasm of overlapping sites of right female breast
CPT/HCPCS: 77280; 77307; 77334; 77336; 80053; 85025; 99213